=== PATIENT | male | born 1980 | race Caucasian/White ===

== ENCOUNTER → 2020-11-22 | Day surgery (SDC) | payer OTHER ==
[~2020-11-22] MED LIST: AMITRIPTYLINE H25 MG PO; CARAFATE1 GM PO; CYCLOBENZAPRINE10 MG PO; CYMBALTA60 MG PO; DICLOFENAC SODI50 MG PO; DULOXETINE HCL20 MG PO; DULOXETINE HCL30 MG PO; EQ FIBER SUPPLEM2 GM PO; FLOMAX0.4 MG PO; HYDROCODON-ACE1 EAC2 PO; KEPPRA500 MG PO; MEDROL 4MG DOSEP4 MG PO; NARCAN4 MG; NEURONTIN100 MG PO; NEURONTIN300 MG PO; NORCO 10-325 T1 EACH PO; NORCO 5-325 TA1 EACH PO; OMEPRAZOLE40 MG PO; OXYCODON-ACETA1 EAC1 PO; PERCOCET 5-3251 EACH PO; PERCOCET 7.5/321 TAB PO; PERCOCET PO; PHENERGAN12.5 M1 PO; PHENERGAN25 M1 PO; PRINIVIL10 MG PO; TRAZODONE 50MG50 MG PO; TRAZODONE HCL100 MG PO; VENLAFAXINE H37.5 M2 PO; XANAX1 MG PO; ZOFRAN4 MG PO
== END | disposition home or self-care (01) ==
LOC: FAS 07:10
DX: K62.0 Anal polyp (principal); K60.2 Anal fissure, unspecified; K64.8 Other hemorrhoids; K64.4 Residual hemorrhoidal skin tags; K59.09 Other constipation; F41.9 Anxiety disorder, unspecified; M19.90 Unspecified osteoarthritis, unspecified site; I10 Essential (primary) hypertension; M47.816 Spondylosis without myelopathy or radiculopathy, lumbar region; G47.30 Sleep apnea, unspecified; Z85.118 Personal history of other malignant neoplasm of bronchus and lung; Z98.890 Other specified postprocedural states; Z80.0 Family history of malignant neoplasm of digestive organs; Z86.16 Personal history of COVID-19; Z88.6 Allergy status to analgesic agent
CPT/HCPCS: J2704; J7120

== ENCOUNTER 2020-12-13 15:58 | Emergency (ER) | payer OTHER ==
[~2020-12-13 15:58] MED LIST changes: -AMITRIPTYLINE H25 MG PO; -DICLOFENAC SODI50 MG PO; -DULOXETINE HCL20 MG PO; -HYDROCODON-ACE1 EAC2 PO; -VENLAFAXINE H37.5 M2 PO
[2020-12-13 17:11] LABS: BILIRUBIN NEGATIVE (NEGATIVE); BLOOD NEGATIVE Ery/uL (NEGATIVE); CLARITY CLEAR (CLEAR); COLOR YELLOW (YELLOW); GLUCOSE (U) NORMAL (NORMAL); LEUKOCYTES NEGATIVE Leu/uL (NEGATIVE); NITRITE NEGATIVE (NEGATIVE); PROTEIN NEGATIVE (NEGATIVE); SPECIFIC GRAVITY >=1.030 (1.001-1.030); UROBILINOGEN 0.2 mg/dL (0.2-1.0); pH 5.5 (5.0-9.0)
[2020-12-13 17:44] LABS: BASOPHIL 1.6 % (0-2); EOSINOPHIL 6.7 % (0-5); HCT 44.7 % (42.0-52.0); HGB 14.8 g/dl (13.2-18.0); LYMPHOCYTE 38.3 % (15-48); MCHC 33.1 g/dL (32.0-36.0); MCV 90.7 fL (78.0-100.0); MONOCYTE 8.3 % (0-12); MPV 10.1 fL (6.0-9.5); NEUTROPHIL 44.8 % (41-80); NRBC 0; PLT 271 K/uL (150-400); RBC 4.93 M/uL (4.70-6.00); RDW 12.7 % (11.5-14.0); WBC 6.9 K/uL (4.0-10.5)
[2020-12-13 18:04] LABS: ALBUMIN 3.9 g/dL (3.4-5.0); BILIRUBIN - TOTAL 0.2 mg/dL (0.2-1.0); BUN/CREAT RATIO (CALC) 15.2 RATIO; CREATININE 0.99 mg/dL (0.67-1.17); GLOBULIN (CALCULATION) 3.7 g/dL; TOTAL PROTEIN 7.6 g/dL (6.4-8.2)
[2020-12-18] MEDS ORDERED: OXYCODON-ACETA1 EAC1 PO (17:29)
[2021-01-15] MEDS ORDERED: HYDROCODON-ACE1 EAC2 PO (18:09)
[2021-01-18] MEDS ORDERED: OXYCODON-ACETA1 EAC1 PO (17:24)
[2021-02-15] MEDS ORDERED: OXYCODON-ACETA1 EAC1 PO (18:05)
[2021-02-15] MEDS ORDERED: DULOXETINE HCL20 MG PO (18:05)
[2021-02-15] MEDS ORDERED: TRAZODONE 50MG50 MG PO (18:05)
[2021-03-15] MEDS ORDERED: OXYCODON-ACETA1 EAC1 PO (14:40)
[2021-04-17] MEDS ORDERED: DICLOFENAC SODI50 MG PO (12:33)
[2021-04-17] MEDS ORDERED: NEURONTIN300 MG PO (12:33)
[2021-04-17] MEDS ORDERED: OXYCODON-ACETA1 EAC1 PO (12:33)
[2021-05-15] MEDS ORDERED: VENLAFAXINE H37.5 M2 PO (07:58)
[2021-05-16] MEDS ORDERED: AMITRIPTYLINE H25 MG PO (08:00)
[2021-05-16] MEDS ORDERED: OXYCODON-ACETA1 EAC1 PO (13:21)
== END 2020-12-13 19:21 | disposition home or self-care (01) ==
LOC: FER 15:58
PROVIDERS: Emergency Medicine
DX: N20.0 Calculus of kidney (principal); I10 Essential (primary) hypertension; Z87.442 Personal history of urinary calculi; Z98.890 Other specified postprocedural states; Z88.6 Allergy status to analgesic agent
CPT/HCPCS: 36415; 80053; 81003; 82150; 83690; 85025; J2270; J2405

== ENCOUNTER → 2022-01-02 | Day surgery (SDC) | payer OTHER ==
[~2022-01-02] VITALS: Ht 170.2 cm; Wt 93.2 kg
[~2022-01-02] MED LIST changes: +AMITRIPTYLINE 550 MG PO; +AMITRIPTYLINE H25 MG PO; +ATIVAN1 MG PO; +DICLOFENAC SODI50 MG PO; +DULOXETINE HCL20 MG PO; +HYDROCODON-ACE1 EAC2 PO; +OXYCODONE-ACET1 EACH PO; +TIZANIDINE HCL2 MG PO; +VENLAFAXINE H37.5 M2 PO
== END | disposition home or self-care (01) ==
LOC: FAS 06:37
DX: S83.232A Complex tear of medial meniscus, current injury, left knee, initial encounter (principal); M17.12 Unilateral primary osteoarthritis, left knee; M67.52 Plica syndrome, left knee; M25.862 Other specified joint disorders, left knee; M79.4 Hypertrophy of (infrapatellar) fat pad; X58.XXXA Exposure to other specified factors, initial encounter
CPT/HCPCS: 71045; J1100; J1170; J2250; J2405; J2704; J3010; J7120